=== PATIENT | female | born 1955 | race Caucasian/White ===

== ENCOUNTER → 2019-10-06 | Outpatient (CLI) | payer OTHER ==
[~2019-10-06] VITALS: Ht 160 cm; Wt 63.0 kg
[~2019-10-06] MED LIST: ADVIL PM CAPLE1 EACH PO; ALPRAZOLAM XR3 MG PO; CALCIUM 600 +1 EAC8 PO; FISH OIL 1,001000 M3; FOSAMAX 70 MG T70 MG PO; LISINOPRIL10 MG PO; OMEPRAZOLE 20 M20 M1 PO; SENIOR TABS1 EACH PO
[2019-10-06 12:45] VITALS: BP 163/88
--- NOTE | 2019-10-06 13:07 | NUR ---
Pain Clinic Assessment: 1. History of Osteoarthritis: NECK L-SPINE History of Rheumatoid Arthritis: 2. Height: 5 ft. 3 in. 160.0 cm. Weight: 138.8 lb. oz. 62.959 kg. Patient's BMI: 24.6 3. Vital Signs: BP: 163/88 Pulse: 83 Resp: 18 Temp: 02 Sat: 100 ECG Mon: 4. Pain Intensity: 7-10 5. Fall Risk: Dizziness: N Needs help standing or walking: N Fallen in the last 3 months: N Fall risk comments: 6. Patient on Blood Thinner: None 7. History of Hypertension: Y 8. Opioid Therapy greater than 6 weeks: N Opiate Contract Signed: 9. Risk Assessment Tool Provided: 0-LOW RISK 10. Functional Assessment Tool: 41/ 11. Recreational Drug Use: Never Drug Type: Tobacco Use: Former Smoker Tobacco Type: Cigarettes Amount or Packs/day: How Many Years: Alcohol Use: Yes Frequency: Special Occasions Quant:
--- NOTE | 2019-10-12 10:50 | HPC ---
[address] [address] PAIN MANAGEMENT CONSULTATION Name: VICKY GIRON Room #: REG CHARLOTTE Mendez.#: [id number] Admission: 10/06/19 Attend Phys: Jeremy Mast DO Discharge: Date of : 51 Report #: [id number] THIS REPORT FOR: cc: Betty Warren MD, Emily G. MD Johnson, James E. DO ~ REFERRING PHYSICIAN: Dr. Xavier Ramirez. CHIEF COMPLAINT: Right upper buttock pain. HISTORY OF PRESENT ILLNESS: As you know, the patient is a very pleasant 64-year-old female who has been referred to our service by her neurosurgeon, Dr. Xavier Ramirez to undergo right sacroiliac joint injection under fluoroscopic guidance. The patient has been reporting ongoing right upper buttock and posterolateral thigh pain that began on 03/04/1999. The patient states she has been suffering from this for an extended period of time. She has been treated previously with epidural injections at another pain clinic, but apparently lost efficacy. She was subsequently referred to Neurosurgery with Dr. Xavier Ramirez. Dr. Ramirez saw the patient last on 09/21/2019, advised to seek treatment with a right sacroiliac joint injection. She indicates to Dr. Whitlock that she was practicing her golf swing in 02/2019 where she exacerbated her symptoms. She describes the pain as constant, aching in the right upper buttock, just below the belt line, radiating into the posterolateral thigh. She denies lower extremity weakness, numbness or tingling. Due to the findings of physical exam and the recent Neurosurgery consultation, the patient was referred to our clinic to trial a right SI joint injection under fluoroscopic guidance. The patient indicates today pain is steady. She describes the pain as shooting. She places current pain score at 7-10/10, daily average at 7/10, worst pain has been 10/10. The patient states lying down, walking and standing as well as twisting exacerbates symptoms. What improves the pain is stretching and repositioning. She has been referred to our service to trial a sacroiliac joint injection on the right. PAST MEDICAL HISTORY: 1. Cirrhosis. 2. Hyperlipidemia. 3. Diverticulosis. 4. Gastroesophageal reflux disease. 5. Chronic thoracic pain. 6. Osteopenia. 7. Mitral regurgitation. PAST SURGICAL HISTORY: 1. Cholecystectomy. [facility] [address] [place] [address] PAIN MANAGEMENT CONSULTATION Name: VICKY GIRON Room #: REG [place]TE Tony#: [id number] Admission: 10/06/19 Attend Phys: Jeremy Mast DO Discharge: Date of : 51 Report #: [id number] 2. Left forearm surgery. 3. Nasal surgery. 4. Elbow surgery. 5. Cyst removal from the tongue. 6. Right Achilles tendon repair x 3, sinus surgery in 2011, tubal ligation. SOCIAL HISTORY: The patient denies tobacco, IV or illicit drug use. Admits to approximately 2 alcohol beverages per week. 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 She is not receiving workmen's compensation nor is she trying to obtain disability benefits. She is unaccompanied at today's visit. She is not in litigation in regards to her pain. REVIEW OF SYSTEMS: Positive for recent weight gain, wearing corrective eyewear, hearing loss with tinnitus, chronic sinus problems with rhinitis, frequent urination, nocturia, rash and itching, nervousness, anxiety, right upper buttock and posterolateral thigh pain that is chronic in nature. All other review of systems negative per 12-point review of systems other than those listed in history of present illness. Pain impact score 41/70 indicating moderate interference of daily activities secondary to pain. ALLERGIES: CODEINE. CURRENT MEDICATIONS: Advil PM 1 tab p.o. at bedtime, alprazolam 0.5 mg p.r.n., alendronate 70 mg once a week, calcium carbonate 1 tab per day, omega-3 fish oil 1 tab per day, lisinopril 10 mg per day, multivitamin 1 tab per day and omeprazole 20 mg once a day. IMAGING: MRI of lumbar spine obtained on 09/28/2019 shows L1-L2 unremarkable, L2-L3 shows mild intervertebral disk changes, mild facet arthrosis. No central canal neural foraminal stenosis. L3-L4, marked intervertebral disk space changes, moderate facet arthrosis. No central canal neural foraminal stenosis. L4-L5, mild intervertebral disk space, marked facet arthrosis. No central canal neural foraminal stenosis. L5-S1, mild intervertebral disk space changes, marked facet arthropathy, no central canal neural foraminal stenosis. PQRS: The patient has known arthritic changes of the lumbar spine and cervical spine. No rheumatoid arthritis. She is placing pain score at 7/10. She is not a fall risk, has not had a fall in last 3 months. She is not on blood thinners, but is treated for hypertension. She is not on chronic opioids and has reportedly low addiction potential based on our assessment tool. Pain impact score 41/70 indicating moderate interference of daily activities secondary to pain. PHYSICAL EXAMINATION: [facility] [address] [place] [address] PAIN MANAGEMENT CONSULTATION Name: VICKY GIRON Room #: REG [place]TE Tony#: [id number] Admission: 10/06/19 Attend Phys: Jeremy Mast DO Discharge: Date of : 51 Report #: [id number] VITAL SIGNS: Blood pressure 163/88, pulse 83, respiratory rate 18 and unlabored. The patient is 100% on room air. Height 5 feet 3 inches tall, weight 138.8 pounds, BMI calculated 24.6. GENERAL: Well-developed, well-nourished, well-hydrated 64-year-old female, appearing her stated age, pain is rated today 7-10/10. HEENT: Normocephalic, atraumatic. Pupils equal, round, reactive to light. Extraocular muscles are intact. NEUROLOGIC: Speech fluent. The patient deemed a good historian. LUNGS: Clear. No wheeze, rhonchi or rales. CARDIOVASCULAR: Regular. No appreciable gallop, no rub. ABDOMEN: Soft, nontender, nondistended, normoactive bowel sounds. EXTREMITIES: Show no clubbing, no cyanosis, no edema. MUSCULOSKELETAL: Lower extremity strength equal and symmetrical 5/5, intact to light touch from L1 through S2 dermatomes. Seated straight leg raising is negative. Supine straight leg is raising negative. Sunshine's test is only positive for right SI joint pain. No intrinsic hip pathology. There is normal range of motion of the hips bilaterally. Gait is mildly antalgic favoring right lower extremity over left. There is a leg length discrepancy noted when comparing left lower extremity to right with right significantly shorter. Reflexes are 2+/4 bilaterally. The patient is able to toe walk and heel walk without complications. Ankle clonus negative. Babinski is negative. ASSESSMENT: 1. Right sacroiliac joint pain. 2. Lumbosacral spondylosis without radiculopathy. 3. Facet arthropathy of the lumbar spine. 4. Lumbar degeneration. 5. Chronic intractable pain. PLAN: 1. Based on today's physical exam and history the patient has provided, the description the patient uses in regards to pain as well as location of symptoms, likely source of the patient's symptoms appears to be the right sacroiliac joint. I do feel that there is a combination of the right sacroiliac joint with facet arthropathy of the lumbar spine, though the most problematic source of symptoms appears to be the right SI joint. This concurs with the findings that Dr. Xavier Ramirez had on 09/21/2019 during their last consultation. The patient was subsequently then referred to our service to trial a sacroiliac joint injection. We also discussed with the patient the other treatment options available for sacroiliac joint pain. The following was discussed with the patient today. We discussed physical therapy, stretching exercises as well as pelvic leveling techniques done either through chiropractic or osteopathic physicians. We discussed medication management utilizing a consistent nonsteroidal anti-inflammatory for pain control, whether this would be topical or oral, we determine the efficacy with the patient. We discussed the intraarticular SI joint injection requested by Dr. Ramirez [place] [address] PAIN MANAGEMENT CONSULTATION Name: JULIANNA GIRONSAMMKARISSA Room #: JAMES Tony#: [id number] Admission: 10/06/19 Attend Phys: Jeremy Mast DO Discharge: Date of : 51 Report #: [id number] discussed surgical fusion of the sacroiliac joint. After reviewing the risks and benefits of all the proposed treatment options, the patient chose to undergo right sacroiliac joint injection under fluoroscopic guidance. 2. The patient was advised the risks and the benefits of a right sacroiliac joint injection. These risks include but are not necessarily limited to bleeding, bruising, infection, worsening pain, no relief of pain, also risk of temporary or permanent muscle weakness, temporary or permanent nerve damage, possible joint destruction and . The patient states understood and wished to proceed. 2. No medication changes made at today's visit. The patient will continue current medical therapy as previously prescribed. 4. We will see the patient back in followup visit in approximately 30 days. At that time, review the efficacy of today's right sacroiliac joint injection and determine if next in the series might be necessary. 3. We wish to thank Dr. Xavier Ramirez for the opportunity to see this patient in consultation. We will keep you apprised of her response to treatment as we address what appears to be right sacroiliac joint pain. Again, we wish to thank you for the opportunity to see this patient in consultation. PROCEDURE NOTE DESCRIPTION OF PROCEDURE: Right sacroiliac joint injection under fluoroscopic guidance. This is the first procedure of the first series that the patient is undergoing. After obtaining written consent, the patient was taken back to the fluoroscopy suite and placed in a prone position with a pillow under the pelvis to decrease the lumbar lordosis. The skin of the gluteal-sacral area overlying the right sacroiliac joint was prepped and draped in an aseptic fashion. A medial to lateral oblique projection allowed separation of the anterior and posterior branches of the joint space. The skin and subcutaneous tissue overlying the target site of injection was anesthetized using 3 mL of 1% lidocaine. A 22-gauge 3-1/2 inch needle with a bent tip was directed into the inferior aspect of the sacroiliac joint using a posterior approach. A "giving way" at the needle hub was noted once the dorsal sacroiliac and interosseous ligaments were engaged. After negative aspiration for heme, a total of 0.5 mL of Omnipaque was injected, outlining the coin-shaped inferior recess of the joint. Provocation responses consisting of intense buttock pain were negative. After negative aspiration for heme, 3 mL of a solution containing 1 mL, 40 mg per mL, 40 mg total triamcinolone and 2 mL of bupivacaine 0.5% was slowly injected. The needle was then retracted approximately mcc and the needle track was flushed with 1 mL of 1% lidocaine. Needle was then removed. A sterile bandage was placed over the injection site. There were no new sensory deficits present in the lower extremities. [facility] [address] [place] [address] PAIN MANAGEMENT CONSULTATION Name: [facility] Room #: REG [facility].#: [id number] Admission: 10/06/19 Attend Phys: Jeremy Mast DO Discharge: Date of : 51 Report #: [id number] The heart rate, pulse oximetry and blood pressure were continuously monitored after the procedure. There were no apparent complications. The patient tolerated the procedure well and was carefully escorted to the recovery room in stable condition. The VAS was 7/10 before the procedure and 1/10 ten minutes after the procedure. After meeting discharge criteria, the patient was discharged home. <ELECTRONICALLY SIGNED> By: Jeremy Mast DO 10/12/19 1050 [id number] 1559 Jeremy Mast DO /ela
== END | disposition home or self-care (01) ==
LOC: PAIN 06:43
DX: M53.3 Sacrococcygeal disorders, not elsewhere classified (principal); M47.27 Other spondylosis with radiculopathy, lumbosacral region; M47.26 Other spondylosis with radiculopathy, lumbar region; M51.16 Intervertebral disc disorders with radiculopathy, lumbar region; G89.29 Other chronic pain; E78.5 Hyperlipidemia, unspecified; K21.9 Gastro-esophageal reflux disease without esophagitis; M81.0 Age-related osteoporosis without current pathological fracture; Z98.890 Other specified postprocedural states; Z79.899 Other long term (current) drug therapy; Z87.19 Personal history of other diseases of the digestive system; Z88.8 Allergy status to other drugs, medicaments and biological substances

== ENCOUNTER → 2019-11-30 | Outpatient (CLI) | payer OTHER ==
[~2019-11-30] VITALS: Ht 160 cm; Wt 61.3 kg
[~2019-11-30] MED LIST changes: +NABUMETONE 500500 M1 PO
[2019-11-30 09:33] VITALS: BP 122/69
--- NOTE | 2019-11-30 09:56 | NUR ---
Pain Clinic Assessment: 1. History of Osteoarthritis: NECK L-SPINE History of Rheumatoid Arthritis: 2. Height: 5 ft. 3 in. 160.0 cm. Weight: 135.2 lb. oz. 61.326 kg. Patient's BMI: 24.0 3. Vital Signs: BP: 122/69 Pulse: 94 Resp: 14 Temp: 02 Sat: 100 ECG Mon: 4. Pain Intensity: 2 5. Fall Risk: Dizziness: N Needs help standing or walking: N Fallen in the last 3 months: N Fall risk comments: 6. Patient on Blood Thinner: None 7. History of Hypertension: Y 8. Opioid Therapy greater than 6 weeks: N Opiate Contract Signed: 9. Risk Assessment Tool Provided: 0-LOW RISK 10. Functional Assessment Tool: 11. Recreational Drug Use: Never Drug Type: Tobacco Use: Former Smoker Tobacco Type: Cigarettes Amount or Packs/day: 3/4 How Many Years: 15 Alcohol Use: Yes Frequency: Weekly Quant: BEER
--- NOTE | 2019-12-01 12:58 | HPC ---
[facility] [place] [address] PAIN MANAGEMENT CONSULTATION Name: VICKY GIRON Room #: REG CHARLOTTE Cecily#: [id number] Admission: 11/30/19 Attend Phys: Jeremy Mast DO Discharge: Date of : 51 Report #: [id number] THIS REPORT FOR: cc: Betty Warren MD, Emily G. MD Johnson, James E. DO ~ DATE OF SERVICE: 11/30/2019 REFERRING PHYSICIAN: Dr. Xavier Ramirez. CHIEF COMPLAINT: Right upper buttock pain. HISTORY OF PRESENT ILLNESS: As you know, the patient is a very pleasant 64-year-old female who has returned today in followup visit per the request of her neurosurgeon, Dr. Xavier Ramirez for possible right sacroiliac joint injection. The patient has undergone lumbar epidural injections x 3, the most recent in June, was then subsequently referred to our clinic where she underwent a right SI joint injection per the request of Dr. Ramirez in September and then the patient was sent to undergo greater trochanteric bursa injection at Orthopedics in October. She returns today in followup visit, now reporting pain score about 2/10. She is able to localize pain directly over the right sacroiliac joint. She indicates pain is exacerbated with lying down and walking, improves with stretching and repositioning. The patient states her pain is well controlled at present, returning today to discuss the possibility of undergoing next in the series of injections. The patient does report that she has recently been treated for diverticulitis and continues to experience symptoms from her diverticular issues. She states she is experiencing ongoing pain and difficulty with bowel movements. She believes she may have continued symptoms of her diverticular issues. ALLERGIES: CODEINE. CURRENT MEDICATIONS: Advil, alprazolam, alendronate, calcium carbonate, omega-3 fish oil, lisinopril, multivitamin, omeprazole. SOCIAL HISTORY: The patient denies tobacco, IV or illicit drug use. Admits to approximately 2 alcohol beverages per week. 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 IMAGING: No new imaging available. PQRS: The patient has known arthritic changes of the lumbar spine and cervical spine. No rheumatoid arthritis. She is placing pain intensity day 08/30. She is not at fall risk, has not had a fall in last 3 months. She is not on blood thinners, but is treated for hypertension. She is not on chronic opioids, but [facility] [address] [place] [address] PAIN MANAGEMENT CONSULTATION Name: VICKY GIRON Room #: REG CLI [facility].#: [id number] Admission: 11/30/19 Attend Phys: Jeremy Mast DO Discharge: Date of : 51 Report #: [id number] does have a low opiate addiction potential. Pain impact is 41/70, moderate interference of daily activities secondary to pain. PHYSICAL EXAMINATION: VITAL SIGNS: Blood pressure 122/69, pulse 94, respiratory rate 14 and unlabored. The patient is 100% on room air. Height 5 feet 3 inches tall, weight 135.2 pounds, BMI calculated 24. GENERAL: Well-developed, well-nourished, well-hydrated 64-year-old female, appearing stated age, pain is rated today 2/10. HEENT: Normocephalic, atraumatic. Pupils equal, round, reactive to light. Speech fluent. EXTREMITIES: Show no clubbing, no cyanosis, and no edema. MUSCULOSKELETAL: Seated straight leg raising is negative. Supine straight leg raising is negative. Sunshine's test is positive for right SI joint pain directly over the area of her typical symptoms. Gait mildly antalgic. ASSESSMENT: 1. Right sacroiliac joint pain. 2. Lumbosacral spondylosis without radiculopathy. 3. Lumbar facet arthropathy. 4. Lumbar degeneration. 5. Greater trochanteric bursitis. 6. Chronic intractable pain. PLAN: 1. The patient returns today in followup visit, now reporting pain score 2/10, which is completely tolerable for her. She was established today's appointment at our last visit to discuss the possibility of undergoing a right sacroiliac joint injection. At this point, we would recommend delaying the injection as her pain is well controlled and she is currently experiencing continued diverticular issues, which would be likely exacerbated with steroid exposure. We would recommend limiting the steroid exposure at this time. In conjunction with the current diverticular issues, there is a possibility of more risk with COVID-19 virus in elective procedures and steroid exposures. The patient and I did discuss this today and are in agreement to delay the injection until which time it is causing more dysfunction or she has complete resolution of her diverticular issues and the COVID restrictions have been reduced. The patient is agreeable with this plan. 2. No medication changes made at today's visit. The patient will continue current medical therapy as previously prescribed. 3. We will see the patient back in followup visit on an as-needed basis for possible next in the series of right sacroiliac joint injections. The patient is reaching top levels of steroid exposure over the 6 months and recommend utilization of the medication only when necessary. It is not to provide a complete resolution of pain. We will see the patient back in followup visit if her symptoms do not improve for a right SI joint injection. We are hopeful the [facility] [place] [address] PAIN MANAGEMENT CONSULTATION Name: VICKY GIRON Room #: JAMES Tony#: [id number] Admission: 11/30/19 Attend Phys: Jeremy Mast DO Discharge: Date of : 51 Report #: [id number] patient will continue to see improvement given her 08/30 pain today from 01/27 when we last saw her. <ELECTRONICALLY SIGNED> By: Jeremy Mast DO 12/01/19 1258 1059 1220 Jeremy Mast DO /nt
== END ==
LOC: PAIN 06:50
DX: M47.817 Spondylosis without myelopathy or radiculopathy, lumbosacral region (principal); M51.36 Other intervertebral disc degeneration, lumbar region; G89.29 Other chronic pain; M71.9 Bursopathy, unspecified; M12.9 Arthropathy, unspecified; M53.3 Sacrococcygeal disorders, not elsewhere classified; Z79.899 Other long term (current) drug therapy

== ENCOUNTER → 2020-01-04 | Outpatient (CLI) | payer OTHER ==
[~2020-01-04] VITALS: Ht 160 cm; Wt 61.5 kg
[~2020-01-04] MED LIST changes: +MIRALAX119 GM PO
[2020-01-04 09:06] VITALS: BP 125/65
--- NOTE | 2020-01-04 09:15 | NUR ---
Pain Clinic Assessment: 1. History of Osteoarthritis: NECK L-SPINE History of Rheumatoid Arthritis: 2. Height: 5 ft. 3 in. 160.0 cm. Weight: 135.6 lb. oz. 61.508 kg. Patient's BMI: 24.0 3. Vital Signs: BP: 125/65 Pulse: 74 Resp: 16 Temp: 02 Sat: 100 ECG Mon: 4. Pain Intensity: 2; 8 WITH ACTIVITY 5. Fall Risk: Dizziness: N Needs help standing or walking: N Fallen in the last 3 months: N Fall risk comments: 6. Patient on Blood Thinner: None 7. History of Hypertension: Y 8. Opioid Therapy greater than 6 weeks: N Opiate Contract Signed: 9. Risk Assessment Tool Provided: 0-LOW RISK 10. Functional Assessment Tool: 11. Recreational Drug Use: Never Drug Type: Tobacco Use: Former Smoker Tobacco Type: Amount or Packs/day: How Many Years: Alcohol Use: Yes Frequency: Quant:
--- NOTE | 2020-01-11 09:19 | HPC ---
[facility] [place] [address] PAIN MANAGEMENT CONSULTATION Name: VICKY GIRON Room #: REG CHARLOTTE Cecily#: [id number] Admission: 01/04/20 Attend Phys: Jeremy Mast DO Discharge: Date of : 51 Report #: [id number] THIS REPORT FOR: cc: Betty Warren MD, Emily G. MD Johnson, James E. DO ~ DATE OF SERVICE: 01/04/2020 REFERRING PHYSICIAN: Dr. Xavier Ramirez PRIMARY CARE PHYSICIAN: Dr. Betty Warren CHIEF COMPLAINT: Right upper buttock pain. HISTORY OF PRESENT ILLNESS: As you know, the patient is a very pleasant 64-year-old female who has returned today in followup visit per the request of her neurosurgeon Dr. Xavier Ramirez to undergo a right SI joint injection under fluoroscopic guidance. We saw the patient last month where she was on antibiotics for an acute bacterial infection. It was determined that an elective procedure utilizing steroid should be delayed until which time she completed the antibiotic therapy and symptoms had improved. This in conjunction with restrictions in regards to COVID-19 and intra-articular joint injections. We have since relaxed our regulations around COVID-19 and the patient has completed her antibiotic therapy and has returned for a right SI joint injection under fluoroscopic guidance to address pain for which she gives a pain score of 8/10 with activity, 2/10 with non-activity. ALLERGIES: CODEINE. CURRENT MEDICATIONS: Advil, alprazolam, alendronate, calcium carbonate, omega-3 fish oil, lisinopril, omega-3 vitamins and omeprazole. SOCIAL HISTORY: The patient denies tobacco, IV or illicit drug use. Admits to approximately 2 alcohol beverages per week. 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 IMAGING: No new imaging available. PQRS: The patient has arthritic changes of the lumbar spine, cervical spine. No rheumatoid arthritis. She is placing pain today at 2/10 with no activity, 8/10 with activity, fall risk is negative. She has not fallen in last 3 months. She is not on blood thinners, but is treated for hypertension. She is not on chronic opioids and has a low opioid addiction potential. Pain impact score 41 of 70 indicating moderate to severe interference of daily activities secondary to pain. [address] [address] PAIN MANAGEMENT CONSULTATION [facility] Room #: JAMES CHARLOTTE Tony#: [id number] Admission: 01/04/20 Attend Phys: Jeremy Mast DO Discharge: Date of : 51 Report #: [id number] PHYSICAL EXAMINATION: VITAL SIGNS: Blood pressure 125/65, pulse 74, respiratory rate 16 and unlabored. The patient is 100% on room air. Height 5 feet 3 inches tall, weight 135.6 pounds, BMI calculated 24.0. GENERAL: Well-developed, well-nourished, well-hydrated 64-year-old female, appearing stated age, pain is rated today up to 8/10 with activity. HEENT: Normocephalic, atraumatic. Pupils equal, round and reactive. EXTREMITIES: Show no clubbing, no cyanosis, no edema. MUSCULOSKELETAL: Lower extremity strength remains symmetrical 5/5. Slight giveaway strength noted with hip flexion on the right due to pain generation over the SI joint. Seated straight leg raising negative. Supine straight leg raising negative. Sunshine's test is positive for SI joint dysfunction, pain with radiation in classic distribution for SI joint. Gait remains mildly antalgic favoring right lower extremity. There is noted leg length discrepancy when comparing left lower extremity to right. ASSESSMENT: 1. Right sacroiliac joint pain. 2. Lumbosacral spondylosis without radiculopathy. 3. Facet arthropathy of the lumbar spine. 4. Lumbar degeneration. 5. Chronic intractable pain. PLAN: 1. The patient returns today in followup visit per the request of her neurosurgeon, Dr. Xavier Ramirez to undergo next in the series of right sacroiliac joint injections under fluoroscopic guidance. The patient has completed her antibiotic therapy and restrictions for COVID have been reduced and thus we can perform the requested right sacroiliac joint injection today. The patient has been advised risks and benefits of this procedure. These risks include but are not necessarily limited to bleeding, bruising, infection, worsening pain, no relief of pain, also risk of temporary or permanent muscle weakness, temporary or permanent nerve damage, possible paralysis and . The patient states understood and wished to proceed. 2. No medication changes made at today's visit. The patient will continue current medical therapy as previously prescribed. 3. We will see the patient back in followup visit on an as needed basis for possible next in the series of right sacroiliac joint injections under fluoroscopic guidance. PROCEDURE NOTE DESCRIPTION OF PROCEDURE: Right sacroiliac joint injection under fluoroscopic guidance. [address] [address] PAIN MANAGEMENT CONSULTATION Name: VICKY GIRON Room #: REG CHARLOTTE Tony#: [id number] Admission: 01/04/20 Attend Phys: Jeremy Mast DO Discharge: Date of : 51 Report #: [id number] This is the second procedure of the first series that the patient is undergoing. After obtaining written consent, the patient was taken back to the fluoroscopy suite and placed in a prone position with a pillow under the pelvis to decrease the lumbar lordosis. The skin of the gluteal-sacral area overlying the right sacroiliac joint was prepped and draped in an aseptic fashion. A medial to lateral oblique projection allowed separation of the anterior and posterior branches of the joint space. The skin and subcutaneous tissue overlying the target site of injection was anesthetized using 3 mL of 1% lidocaine. A 22-gauge 3.5-inch needle with a bent tip was directed into the inferior aspect of the sacroiliac joint using a posterior approach. A "giving way" at the needle hub was noted once the dorsal sacroiliac and interosseous ligaments were engaged. After negative aspiration for heme, a total of 0.4 mL of Omnipaque was injected, outlining the coin-shaped inferior recess of the joint. Provocation responses consisting of intense buttock pain were negative. After negative aspiration for heme, 3 mL of a solution containing 1 mL 40 mg/mL 40 mg total triamcinolone and 2 mL of bupivacaine 0.5% was slowly injected. The needle was then retracted approximately penitentiary and the needle track was flushed with 1 mL of lidocaine 1%. Needle was then removed. A sterile bandage was placed over the injection site. There were no new sensory deficits present in the lower extremities. The heart rate, pulse oximetry and blood pressure were continuously monitored after the procedure. There were no apparent complications. The patient tolerated the procedure well and was carefully escorted to the recovery room in stable condition. The VAS was up to 8/10 before the procedure and 0/10 ten minutes after the procedure. After meeting discharge criteria, the patient was discharged home. <ELECTRONICALLY SIGNED> By: Jeremy Mast DO 01/11/20 0919 [id number] Jeremy Mast DO /nt
== END | disposition home or self-care (01) ==
LOC: PAIN 06:55
PROVIDERS: ATTEND Anesthesiology Pain Medicine
DX: M53.3 Sacrococcygeal disorders, not elsewhere classified (principal); M47.817 Spondylosis without myelopathy or radiculopathy, lumbosacral region; M47.816 Spondylosis without myelopathy or radiculopathy, lumbar region; M51.36 Other intervertebral disc degeneration, lumbar region; G89.29 Other chronic pain; I10 Essential (primary) hypertension; Z98.890 Other specified postprocedural states; Z79.899 Other long term (current) drug therapy; Z88.8 Allergy status to other drugs, medicaments and biological substances; Z87.891 Personal history of nicotine dependence

== ENCOUNTER → 2020-03-15 | Outpatient (CLI) | payer OTHER ==
[~2020-03-15] VITALS: Ht 160 cm; Wt 61.6 kg
[~2020-03-15] MED LIST changes: +CHILDREN'S ASPI81 M1 PO; +DOXYCYCLINE HYC50 MG PO
[2020-03-15 15:00] VITALS: BP 132/59
--- NOTE | 2020-03-15 15:15 | NUR ---
Pain Clinic Assessment: 1. History of Osteoarthritis: NECK L-SPINE History of Rheumatoid Arthritis: 2. Height: 5 ft. 3 in. 160.0 cm. Weight: 135.8 lb. oz. 61.598 kg. Patient's BMI: 24.1 3. Vital Signs: BP: 132/59 Pulse: 77 Resp: 14 Temp: 02 Sat: 100 ECG Mon: 4. Pain Intensity: 4 5. Fall Risk: Dizziness: N Needs help standing or walking: N Fallen in the last 3 months: Y Fall risk comments: 6. Patient on Blood Thinner: None 7. History of Hypertension: Y 8. Opioid Therapy greater than 6 weeks: N Opiate Contract Signed: 9. Risk Assessment Tool Provided: 0-LOW RISK 10. Functional Assessment Tool: 11. Recreational Drug Use: Never Drug Type: Tobacco Use: Former Smoker Tobacco Type: Amount or Packs/day: How Many Years: Alcohol Use: Yes Frequency: Quant:
--- NOTE | 2020-03-28 12:51 | HPC ---
[facility] [place] [address] PAIN MANAGEMENT CONSULTATION Name: VICKY GIRON Room #: REG CHARLOTTE Cecily#: [id number] Admission: 03/15/20 Attend Phys: Jeremy Mast DO Discharge: Date of : 51 Report #: [id number] THIS REPORT FOR: cc: Betty Warren MD, Emily G. MD Johnson, James E. DO ~ DATE OF SERVICE: 03/15/2020 CHIEF COMPLAINT: Right low back pain. HISTORY OF PRESENT ILLNESS: As you know, the patient is a 64-year-old female who was referred to our service by her neurosurgeon, Dr. Xavier Ramirez for treatment for her sacroiliac joint pain. The patient underwent SI joint injections in early 2019. The patient reports that the injections did provide some benefit, but she continues to experience recurrence of symptoms. She returns today with axial distribution changes of her pain. It now is located over the facet joints of the lower lumbar spine consistent with facet arthropathy. She has undergone recent imaging which does confirm severe facet arthropathy at L4-L5 and L5-S1 level. She returns to discuss treatment options. Today, the patient is reporting pain score at a level of 4/10. ALLERGIES: CODEINE. CURRENT MEDICATIONS: Doxycycline 500 mg twice a day, MiraLax 17 grams per day, nabumetone 500 mg 3 times a day, omeprazole 20 mg per day, multivitamin 1 tab per day, lisinopril 10 mg per day, omega-3 fish oil 1 tab per day, calcium carbonate 1 tab per day, alendronate 70 mg once a day, alprazolam 0.5 mg p.r.n., Advil PM 1 tab p.o. at bedtime. SOCIAL HISTORY: The patient denies tobacco, IV or illicit drug use. Admits to approximately 2 alcohol beverages per week. 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 She is unaccompanied at today's visit. IMAGING: No new imaging available. PQRS: The patient has known arthritic changes of the lumbar spine, cervical spine. No reported rheumatoid arthritis. She is placing her current pain score at 4/10. She is not a fall risk, but has had a fall in last 3 months, apparently tripping over objects at home. This has been rectified. She is not on blood thinners, but is treated for hypertension. She is not on chronic opioids and based on our assessment tool has a low opioid assessment risk. Pain impact is 41/70, moderate to severe interference of daily activities secondary to pain. PHYSICAL EXAMINATION: [facility] [address] [place] [address] PAIN MANAGEMENT CONSULTATION [facility] #: REG [facility].#: [id number] Admission: 03/15/20 Attend Phys: Jeremy Mast DO Discharge: Date of : 51 Report #: [id number] VITAL SIGNS: Blood pressure 132/59, pulse is 77, respiratory rate 14 and unlabored. The patient is 100% on room air. Height 5 feet 3 inches tall, weight 135.8 pounds, BMI calculated 24.1. GENERAL: Well-developed, well-nourished, well-hydrated 64-year-old female, appearing stated age, pain is rated today 4/10. HEENT: Normocephalic, atraumatic. Pupils equal, round and reactive. Speech is fluent. EXTREMITIES: Show no clubbing, no cyanosis. No reported edema. MUSCULOSKELETAL: The patient does have palpatory tenderness over the paraspinal musculature of lower lumbar spine. No spinous process tenderness. Deep palpation over the facet joints at L4-L5 and L5-S1 could cause intensification of pain. There remains positive SI joint pain with deep palpation over the sacroiliac joint as well. Lumbar provocation testing is met with increasing axial back pain. Sunshine's test is negative. ASSESSMENT: 1. Lumbosacral spondylosis without radiculopathy. 2. Facet arthropathy of lumbar spine. 3. Lumbar degeneration. 4. Right sacroiliac joint pain. 5. Chronic intractable pain. PLAN: 1. The patient returns today in followup visit reporting mainly facet arthropathy pain. She is able to localize pain directly over the L4-L5 and L5-S1 facet joints on the right side specifically. There is no pain on the left. The patient and I discussed at length the treatment options we have available. She is interested in intraarticular injections or medial branch nerve blocks after our discussion today. We have agreed to have the patient undergo the procedure and have established an appointment next week, 03/21/2020 to undergo medial branch blocks. The patient is agreeable to undergo the plan. We will see her back on 03/21/2020. The patient in the interim has indicated she recently underwent an MRI of the lumbar spine at [facility]. We have not had this available to us. We will obtain this before the patient returns. 2. No medication changes made at today's visit. The patient will continue current medical therapy as prior prescribed. 3. We will see the patient back in followup visit in 1 week to undergo medial branch blocks at L3, L4, L5 on the right side to address facet arthropathy pain. If this is unsuccessful, move forward with radiofrequency lesioning. The patient is agreeable with the plan after we spent 20 minutes of time discussing the different treatment options for her pain today. <ELECTRONICALLY SIGNED> By: Jeremy Mast DO 03/28/20 1251 [id number] Jeremy Mast DO /nt
== END ==
LOC: PAIN 03-08 06:55
PROVIDERS: ATTEND Anesthesiology Pain Medicine
DX: M47.817 Spondylosis without myelopathy or radiculopathy, lumbosacral region (principal); M53.3 Sacrococcygeal disorders, not elsewhere classified; G89.29 Other chronic pain; Z88.5 Allergy status to narcotic agent; Z79.899 Other long term (current) drug therapy

== ENCOUNTER → 2020-03-21 | Outpatient (CLI) | payer OTHER ==
[~2020-03-21] VITALS: Ht 160 cm; Wt 61.2 kg
[~2020-03-21] MED LIST changes: -CHILDREN'S ASPI81 M1 PO
--- NOTE | ~2020-03-21 | HPC ---
[facility] [address] [place] [employer] [address] PAIN MANAGEMENT CONSULTATION Name: VICKY GIRON Room #: REG CHARLOTTE Simms.#: [id number] Admission: 03/21/20 Attend Phys: Jeremy Mast DO Discharge: Date of : 51 Report #: [id number] THIS REPORT FOR: cc: Betty Warren MD, Emily G. MD Johnson, James E. DO ~ CC: Betty Ramirez MD DATE OF SERVICE: 03/21/2020 CHIEF COMPLAINT: Right low back pain, upper buttock pain. HISTORY OF PRESENT ILLNESS: As you know, the patient is a very pleasant 64-year-old female who returns today in followup visit to undergo right L3, L4, L5 medial branch nerve block under fluoroscopic guidance to determine if the symptoms she is experiencing from the facet joints on the right side will be amenable to moving forward with radiofrequency lesioning. This is the first in the stage procedures. The patient places pain today at a level of 6/10. She indicates no injury or trauma since our visit of last week where we discussed this treatment option. She returns for the injections today. ALLERGIES: CODEINE. CURRENT MEDICATIONS: See chart. SOCIAL HISTORY: The patient denies tobacco, IV or illicit drug use. Admits to 2 alcohol beverages per week. She is a retired teacher, unaccompanied today. IMAGING: No new imaging available. PQRS: The patient has arthritic changes of the lumbar spine, cervical spine, but no rheumatoid arthritis. She is placing pain intensity 6/10. She is not a fall risk, but has had a fall in last 3 months. She is not on blood thinners, but is treated for hypertension. She is not on chronic opioids, has a low opiate addiction potential. Pain impact today is reported at 41/70, severe interference of daily activities secondary to pain. PHYSICAL EXAMINATION: VITAL SIGNS: Blood pressure 127/60, pulse 100, respiratory rate 14 and unlabored. The patient is 98% on room air. Height 5 feet 3 inches tall, weight 135 pounds, BMI calculated 23.4. GENERAL: Well-developed, well-nourished, well-hydrated 64-year-old female, appearing stated age, pain is rated today at 6/10. HEENT: Normocephalic, atraumatic. Pupils equal, round and reactive. Speech [facility] [address] [place] [address] PAIN MANAGEMENT CONSULTATION Name: VICKY GIRON Room #: REG CHARLOTTE Cecily#: [id number] Admission: 03/21/20 Attend Phys: Jeremy Mast DO Discharge: Date of : 51 Report #: [id number] fluent. EXTREMITIES: Show no clubbing, no cyanosis, and no appreciable edema. MUSCULOSKELETAL: Lower extremity strength equal and symmetrical. She has a palpatory tenderness over the right SI joint as well as the facet joints at L4-L5 and L5-S1. Lumbar provocation testing met with right axial back pain, no radiation of symptoms. Straight leg raising remains negative. ASSESSMENT: 1. Lumbosacral spondylosis without radiculopathy. 2. Facet arthropathy of the lumbar spine. 3. Lumbar degeneration. 4. Right sacroiliac joint pain. 5. Chronic intractable pain. PLAN: 1. The patient returns today in followup visit with pain directly over the L4-L5 and L5-S1 facet joints on the right. We have established today's appointment to undergo medial branch blocks of the L3, L4, L5 medial branch nerves on the right side. If this is unsuccessful at alleviating the patient's pain for a prescribed period of time, we would then move forward with the second in the series of medial branch blocks. If this again is successful at alleviating symptoms for a period of time, then moving forward with radiofrequency lesioning would be appropriate. The patient returns for the first in the series of medial branch blocks today. She has been advised risks and benefits of procedure, states understood and wished to proceed. 2. We will establish an appointment for the patient next week. She will contact our clinic over the next couple of days to advise us of the efficacy of the medial branch blocks provided today. We are hopeful the patient will see good benefit with the injections. We will see her back in followup next week for medial branch block #2 in the series. DESCRIPTION OF PROCEDURE: Right L3, L4, L5 lumbar medial branch blocks under fluoroscopic guidance. This is the first of 2 diagnostic medial branch blocks on the right side that the patient is undergoing. After obtaining written consent, the patient was taken back to the fluoroscopy suite and placed in a prone position on the fluoroscopy table with a pillow under the abdomen to decrease the lumbar lordosis. The skin overlying the lumbosacral area was prepped and draped in an aseptic fashion. The L4 transverse process corresponding to the L3 medial branch nerve and the L5 transverse process corresponding to the L4 medial branch nerve on the right side were visualized under AP fluoroscopy. The skin and subcutaneous tissue overlying the target sites of injection were anesthetized using 2 mL of 1% lidocaine. A 20-gauge 3.5 inch spinal needle with a bent tip was advanced under [address] [address] PAIN MANAGEMENT CONSULTATION Name: VICKY GIRON Room #: REG CHARLOTTE Simms#: [id number] Admission: 03/21/20 Attend Phys: Jeremy Mast DO Discharge: Date of : 51 Report #: [id number] fluoroscopic guidance using a superior to inferior and lateral to medial approach to the dorsal, superior and medial aspect of the base of the transverse process. The needles were then directed ventral, medial and caudad to reach the target locations. An oblique view facilitated needle placement with properly positioned needles in the middle of the "eye" of the Seb dog for the medial branch block. At each site the needles rested on periosteum. After negative aspiration for heme or CSF, 0.1 mL of Omnipaque dye was injected at each site under live fluoroscopy, demonstrating absence of vascular uptake. After negative aspiration for heme or CSF, 0.5 mL of bupivacaine 0.5% was slowly injected at each site to avoid forcing the solution away from the target points. The needles were then removed. The L5 dorsal ramus block on the right side was performed using a slightly oblique approach under fluoroscopic guidance, placing the needle within the groove between the sacral site and the superior articular process of S1. The needle rested on periosteum. After negative aspiration for heme or CSF, 0.1 mL of Omnipaque dye was injected at under live fluoroscopy, demonstrating absence of vascular uptake. After negative aspiration for heme or CSF, 0.5 mL of bupivacaine 0.5% was slowly injected to avoid forcing the solution away from the target point. The needle was then removed. Sterile bandages were placed over the injection site. There were no apparent complications. The patient tolerated the procedure well and was carefully escorted to the recovery room in stable condition. The VAS was 6/10 before the procedure and 4/10, 10 minutes after the procedure. After meeting discharge criteria, the patient was discharged home. By: [id number] Jeremy Mast DO /nt
[2020-03-21 14:55] VITALS: BP 127/60
--- NOTE | 2020-03-21 15:01 | NUR ---
Pain Clinic Assessment: 1. History of Osteoarthritis: NECK L-SPINE History of Rheumatoid Arthritis: 2. Height: 5 ft. 3 in. 160.0 cm. Weight: 135.0 lb. oz. 61.236 kg. Patient's BMI: 23.9 3. Vital Signs: BP: 127/60 Pulse: 100 Resp: 14 Temp: 02 Sat: 98 ECG Mon: 4. Pain Intensity: 6 5. Fall Risk: Dizziness: N Needs help standing or walking: N Fallen in the last 3 months: N Fall risk comments: 6. Patient on Blood Thinner: None 7. History of Hypertension: Y 8. Opioid Therapy greater than 6 weeks: N Opiate Contract Signed: 9. Risk Assessment Tool Provided: 0-LOW RISK 10. Functional Assessment Tool: 11. Recreational Drug Use: Never Drug Type: Tobacco Use: Former Smoker Tobacco Type: Cigarettes Amount or Packs/day: How Many Years: Alcohol Use: Yes Frequency: Quant:
== END | disposition home or self-care (01) ==
LOC: PAIN 06:56
PROVIDERS: ATTEND Anesthesiology Pain Medicine
DX: M47.817 Spondylosis without myelopathy or radiculopathy, lumbosacral region (principal); M47.816 Spondylosis without myelopathy or radiculopathy, lumbar region; M51.36 Other intervertebral disc degeneration, lumbar region; M53.3 Sacrococcygeal disorders, not elsewhere classified; G89.29 Other chronic pain; I10 Essential (primary) hypertension; Z98.890 Other specified postprocedural states; Z79.899 Other long term (current) drug therapy; Z88.8 Allergy status to other drugs, medicaments and biological substances

== ENCOUNTER → 2020-03-28 | Outpatient (CLI) | payer OTHER ==
[~2020-03-28] VITALS: Ht 160 cm; Wt 61.2 kg
[~2020-03-28] MED LIST changes: +CHILDREN'S ASPI81 M1 PO
[2020-03-28 13:59] VITALS: BP 130/56
--- NOTE | 2020-03-28 14:14 | NUR ---
Pain Clinic Assessment: 1. History of Osteoarthritis: NECK L-SPINE History of Rheumatoid Arthritis: 2. Height: 5 ft. 3 in. 160.0 cm. Weight: 135.0 lb. oz. 61.236 kg. Patient's BMI: 23.9 3. Vital Signs: BP: 130/56 Pulse: 71 Resp: 14 Temp: 02 Sat: 100 ECG Mon: 4. Pain Intensity: 7 5. Fall Risk: Dizziness: N Needs help standing or walking: N Fallen in the last 3 months: N Fall risk comments: 6. Patient on Blood Thinner: None 7. History of Hypertension: Y 8. Opioid Therapy greater than 6 weeks: N Opiate Contract Signed: 9. Risk Assessment Tool Provided: 0-LOW RISK 10. Functional Assessment Tool: 11. Recreational Drug Use: Never Drug Type: Tobacco Use: Former Smoker Tobacco Type: Amount or Packs/day: How Many Years: Alcohol Use: Yes Frequency: Quant:
--- NOTE | 2020-03-29 12:57 | HPC ---
[address] [address] PAIN MANAGEMENT CONSULTATION Name: VICKY GIRON Room #: REG [place] [facility].#: [id number] Admission: 03/28/20 Attend Phys: Jeremy Mast DO Discharge: Date of : 51 Report #: [id number] THIS REPORT FOR: cc: Betty Warren MD, Emily G. MD Johnson, James E. DO ~ DATE OF SERVICE: 03/28/2020 REFERRING PHYSICIAN: Xavier Ramirez MD CHIEF COMPLAINT: Right low back pain. HISTORY OF PRESENT ILLNESS: As you know, the patient is a 64-year-old female who was referred to our clinic by her orthopedic surgeon, Dr. Xavier Ramirez for evaluation for right low back pain. The patient was seen in consultation per Dr. Ramirez's request, diagnosed with lumbosacral spondylosis and right sacroiliac joint pain. The patient underwent SI joint injection with minimal benefit. She returned in followup visit with pain increasing over the low back. It was diagnosed as facet arthropathy of the lumbar spine. The patient underwent medial branch blocks at our last visit to address the L3, L4, L5 medial branch nerves on the right side with improvement in symptoms of 100%, lasting for nearly 2-1/2 hours. Her symptoms returned as expected back to her baseline level. She returns today in followup visit for the second in the series of medial branch blocks. If this is unsuccessful, move forward with radiofrequency lesioning. The patient is placing her current pain score at 7/10. ALLERGIES: CODEINE. CURRENT MEDICATIONS: See chart. SOCIAL HISTORY: The patient denies tobacco, alcohol, IV or illicit drug use. She is unaccompanied at today's visit. IMAGING: No new imaging available. PQRS: The patient has arthritic changes of the lumbar spine, cervical spine. No rheumatoid arthritis. Pain today is rated at 7/10. She is not a fall risk nor has she had a fall in last 3 months. She is not on blood thinners, but is treated for hypertension. She is not on opioids and has a low opiate addiction potential. Pain impact today 41/70, moderate to severe interference of daily activities secondary to pain. PHYSICAL EXAMINATION: VITAL SIGNS: Blood pressure 130/56, pulse 71, respiratory rate 14 and unlabored. The patient is 100% on room air. Height 5 feet 3 inches tall, [facility] [address] [place] [address] PAIN MANAGEMENT CONSULTATION Name: VICKY GIRON Room #: REG [place] Cecily#: [id number] Admission: 03/28/20 Attend Phys: Jeremy Mast DO Discharge: Date of : 51 Report #: [id number] weight 135 pounds, BMI calculated 23.9. GENERAL: Well-developed, well-nourished, well-hydrated 64-year-old female, appearing stated age, placing pain today at 7/10. HEENT: Normocephalic, atraumatic. Pupils equal, round and reactive. EXTREMITIES: Show no clubbing, no cyanosis, no edema. MUSCULOSKELETAL: Palpatory tenderness is once again noted over the sacroiliac joint on the right when compared to left. Lumbar provocation testing including extension, rotation, lateral flexion all intensify axial back pain consistent with facet arthropathy. Straight leg raising is negative. ASSESSMENT: 1. Lumbosacral spondylosis with radiculopathy. 2. Facet arthropathy of the lumbar spine. 3. Lumbar degeneration. 4. Right sacroiliac joint pain. 5. Chronic intractable pain. PLAN: 1. The patient returns today in followup visit having noted excellent benefit with the medial branch blocks at our last visit. She reported 100% improvement in overall pain lasting for nearly 2-1/2 hours, which is consistent with medial branch blocks from a diagnostic standpoint. The patient returns today in followup visit with pain level of 7/10 involving the same area of the lumbar region to undergo second in the series of medial branch blocks. If this is then successful at alleviating symptoms, we will then have the patient to undergo radiofrequency lesioning at our visit of next week. The patient has been advised risks and benefits of this diagnostic procedure, states understood and wished to proceed. 2. The patient has an appointment with Dr. Xavier Ramirez next week. We recommend she follow up with Dr. Ramirez in regards to the medial branch block treatment and the SI joint treatment and determine if surgical options may be necessary. She will advise us of that discussion after she has completed the consultation. 3. We will see the patient back in followup visit assuming she has excellent benefit with this medial branch block to undergo radiofrequency lesioning next week. PROCEDURE NOTE DESCRIPTION OF PROCEDURE: Right L3, L4, L5 lumbar medial branch blocks under fluoroscopic guidance. This is the second of 2 diagnostic medial branch blocks on the right side that the patient is undergoing. After obtaining written consent, the patient was taken back to the fluoroscopy suite and placed in a prone position on the fluoroscopy table with a [address] [address] PAIN MANAGEMENT CONSULTATION Name: VICKY GIRON Room #: REG [place] Tony#: [id number] Admission: 03/28/20 Attend Phys: Jeremy Mast DO Discharge: Date of : 51 Report #: [id number] under the abdomen to decrease the lumbar lordosis. The skin overlying the lumbosacral area was prepped and draped in an aseptic fashion. The L4 transverse process corresponding L3 medial branch nerve and the L5 transverse process corresponding the L4 medial branch nerve on the right side was visualized under AP fluoroscopy. The skin and subcutaneous tissue overlying the target site(s) of injection was anesthetized using 2 mL of 1% lidocaine. A 22-gauge 3-1/2 inch spinal needle with a bent tip was advanced under fluoroscopic guidance using a superior to inferior and lateral to medial approach to the dorsal, superior and medial aspect of the base of the transverse process(es). The needles were then directed ventral, medial and caudad to reach the target location(s). An oblique view facilitated needle placement with properly positioned needles(s) in the middle of the "eye" of the Seb dog for the medial branch block(s). At each site the needle(s) rested on periosteum. After negative aspiration for heme or CSF, 0.2 mL of Omnipaque dye was injected at each site under live fluoroscopy, demonstrating absence of vascular uptake. After negative aspiration for heme or CSF, 0.5 mL of bupivacaine 0.5% was slowly injected at each site to avoid forcing the solution away from the target points(s). The needle(s) were then removed. The L5 dorsal ramus block on the right side was performed using a slightly oblique approach under fluoroscopic guidance, placing the needle within the groove between the sacral site and the superior articular process of S1. The needle rested on periosteum. After negative aspiration for heme or CSF, 0.2 mL of Omnipaque dye was injected at under live fluoroscopy, demonstrating absence of vascular uptake. After negative aspiration for heme or CSF, 0.5 mL of bupivacaine 0.5% was slowly injected to avoid forcing the solution away from the target point. The needle was then removed. Sterile bandages were placed over the injection site. There were no apparent complications. The patient tolerated the procedure well and was carefully escorted to the recovery room in stable condition. The VAS was 7/10 before the procedure and 0/10 minutes after the procedure. After meeting discharge criteria, the patient was discharged home. <ELECTRONICALLY SIGNED> By: Jeremy Mast DO 03/29/20 1257 [id number] 1232 Jeremy Mast DO /nt
== END | disposition home or self-care (01) ==
LOC: PAIN 06:52
PROVIDERS: ATTEND Anesthesiology Pain Medicine
DX: M54.5 Low back pain (principal); M51.16 Intervertebral disc disorders with radiculopathy, lumbar region; M47.27 Other spondylosis with radiculopathy, lumbosacral region; G89.29 Other chronic pain; M53.3 Sacrococcygeal disorders, not elsewhere classified; Z88.5 Allergy status to narcotic agent; Z79.899 Other long term (current) drug therapy; Z98.890 Other specified postprocedural states; Z87.891 Personal history of nicotine dependence

== ENCOUNTER → 2020-04-05 | Outpatient (CLI) | payer OTHER ==
[~2020-04-05] VITALS: Ht 160 cm; Wt 60.8 kg
[2020-04-05 14:10] VITALS: BP 121/67
--- NOTE | 2020-04-05 14:25 | NUR ---
Pain Clinic Assessment: 1. History of Osteoarthritis: NECK L-SPINE History of Rheumatoid Arthritis: Not Applicable 2. Height: 5 ft. 3 in. 160.0 cm. Weight: 134.0 lb. oz. 60.782 kg. Patient's BMI: 23.7 3. Vital Signs: BP: 121/67 Pulse: 91 Resp: 14 Temp: 02 Sat: 98 ECG Mon: 4. Pain Intensity: 5-6 5. Fall Risk: Dizziness: N Needs help standing or walking: N Fallen in the last 3 months: N Fall risk comments: 6. Patient on Blood Thinner: None 7. History of Hypertension: Y 8. Opioid Therapy greater than 6 weeks: N Opiate Contract Signed: 9. Risk Assessment Tool Provided: 0-LOW RISK 10. Functional Assessment Tool: 11. Recreational Drug Use: Never Drug Type: Tobacco Use: Former Smoker Tobacco Type: Amount or Packs/day: How Many Years: Alcohol Use: Yes Frequency: Weekly Quant: 3
--- NOTE | 2020-04-11 10:42 | HPC ---
[facility] [place] [address] PAIN MANAGEMENT CONSULTATION Name: VICKY GIRON Room #: REG [place] [facility].#: [id number] Admission: 04/05/20 Attend Phys: Jeremy Mast DO Discharge: Date of : 51 Report #: [id number] THIS REPORT FOR: cc: Betty Warren MD, Emily G. MD Johnson, James E. DO ~ DATE OF SERVICE: 04/05/2020 CHIEF COMPLAINT: Low back pain. HISTORY OF PRESENT ILLNESS: As you know, the patient is a 64-year-old female referred to our clinic by her neurosurgeon, Dr. Xavier Ramirez, for evaluation for low back pain. She has undergone medial branch nerve blocks x 2 with excellent benefit. She returns today in followup visit to undergo radiofrequency lesioning of the medial branch nerves of the lumbar spine on the right side. The patient places her current pain score at level of 5-6/10. She has had no changes in her medical history since our visit of 03/28/2020. We have received authorization for the patient to undergo radiofrequency lesioning of the right L3, L4 and L5 medial branch nerves respectively. ALLERGIES: CODEINE. CURRENT MEDICATIONS: See chart. SOCIAL HISTORY: The patient denies tobacco, alcohol, IV or illicit drug use. She is accompanied by a family friend who is present in room today. IMAGING: No new imaging available. PQRS: The patient has arthritic changes of the lumbar spine, cervical spine, but reports no rheumatoid arthritis. She places current pain intensity at 5-6/10. She is not a fall risk nor has she had a fall in last 3 months. She is not on blood thinners, but is treated for hypertension. She is not on chronic opioids and has a low opioid addiction potential. Pain impact today 41 of 70 indicating [id number] interference of daily activities secondary to pain. PHYSICAL EXAMINATION: VITAL SIGNS: Blood pressure 121/67, pulse is 91, respiratory rate 14 and unlabored. The patient is 98% on room air. Height 5 feet 3 inches tall, weight 134 pounds, BMI calculated 23.7. GENERAL: Well-developed, well-nourished, well-hydrated 64-year-old female, appearing stated age. Pain is rated today 5-6/10. HEENT: Normocephalic, atraumatic. Pupils equal, round and reactive. Speech is fluent. [facility] [address] [place] [address] PAIN MANAGEMENT CONSULTATION Name: VICKY GIRON Room #: REG [facility]#: [id number] Admission: 04/05/20 Attend Phys: Jeremy Mast DO Discharge: Date of : 51 Report #: [id number] EXTREMITIES: Show no clubbing, no cyanosis. No appreciable edema. MUSCULOSKELETAL: Lower extremity strength appears symmetrical 5/5, intact to light touch from L1 through S2 dermatomes. Seated straight leg raising negative. Supine straight leg raising negative. Sunshine's test is negative. Modified Gaenslen's positive for axial low back pain on the right, mainly. Lumbar provocation testing is met with increasing pain on the right when compared to the left. ASSESSMENT: 1. Lumbosacral spondylosis with radiculopathy. 2. Facet arthropathy of the lumbar spine. 3. Lumbar degeneration. 4. Right sacroiliac joint pain. 5. Chronic intractable pain. PLAN: 1. The patient has returned today in followup visit having received excellent benefit with her medial branch nerve blocks provided on the right at the L3, L4, and L5 medial branch nerves. With these successful diagnostic blocks, we have now scheduled the patient to undergo radiofrequency lesioning of the right L3, L4, and L5 medial branch nerves in hopes of improving pain. The patient has been advised of the risks and benefits of those procedures. She states she understood and wished to proceed. 2. The patient has requested that we provide some sedation for the patient during the procedure. We have agreed to provide the patient with Versed as an anxiolytic allowing the patient to tolerate the procedure more easily. She had some difficulty with the medial branch blocks causing intense pain. 3. No further medication changes made at today's visit. The patient will continue current oral medications as directed. 4. We will see the patient back in followup visit on an as needed basis. We are hopeful the patient will see good and prolonged benefit with today's radiofrequency lesioning of the medial branch nerves of the lumbar spine. PROCEDURE NOTE DESCRIPTION OF PROCEDURE: Right L3, L4, L5, lumbar medial branch radiofrequency lesioning under fluoroscopic guidance. The procedure was explained and informed consent was obtained from the patient. The patient was informed of the risks of the procedure, which include infection, bleeding, nerve damage, failure to produce pain relief and postoperative discomfort lasting for several weeks. After obtaining written consent, an IV Hep-Lock was placed in the patient's upper extremity. After the IV was placed, the patient received 1 mg of Versed preoperatively. The patient was then taken to the fluoroscopy suite, placed in prone position [address] [address] PAIN MANAGEMENT CONSULTATION Name: VICKY GIRON Room #: REG [place] Tony#: [id number] Admission: 04/05/20 Attend Phys: Jeremy Mast DO Discharge: Date of : 51 Report #: [id number] with pillow under abdomen to decrease lumbar lordosis. Skin overlying lumbosacral area then prepped and draped in aseptic fashion using chlorhexidine and sterile draping procedures. AP imaging on the lumbar spine was used to identify the L2 through L5 vertebral bodies and the sacral ala. Target locations of the right side of the L4 transverse process corresponding the L3 medial branch nerve and the L5 transverse process corresponding to the L4 medial branch nerve were established. At this point, the patient was given a second 1 mg of Versed for anxiety related to the procedure. Cardiopulmonary monitoring was established, and it was monitored throughout the procedure. Using a 27-gauge, 1-1/4 inch needle, skin wheals were placed at the junction of the transverse process of the respective superior articular process using 1 mL of 1% lidocaine at each site. We were careful to only anesthetize the skin and not the deep tissues. The radiofrequency needles were then advanced under fluoroscopic guidance using a superior to inferior, lateral to medial approach to the dorsal superior and medial aspect at the base of the transverse processes. The needles were directed then caudally to reach the target locations. Oblique view facilitated needle placement with properly positioned needles in the middle of the "eye" of the Seb dog. At each site, needles rested on periosteum. Touching bone initially assured the needles were not placed too deeply. Radiofrequency lesioning of the L5 medial branch nerve on the right side was performed using a superior, inferior, lateral to medial approach under fluoroscopic guidance, placing the needle within the groove between the sacral ala and the superior articular process of S1. Needle rested on periosteum. Stimulation was performed at each level once the cannulas were in position. Sensory stimulation was performed at 0.3, 0.4, and 0.4 with impedance of 244, 146, and 175 at 50 Hz for the L3, L4, L5 medial branch nerves respectively. Good stimulation of the lumbar and buttock region was elicited indicating correct alignment with the posterior primary ramus. Absence of lower motor fasciculation was noted at 3 volts 2 Hz stimulation during testing of the L3, L4, L5 medial branch nerves on the right respectively. Following this affirmation of disassociation between sensory and motor stimulation, negative aspiration noted for heme or cerebrospinal fluid at each level. Next, 1 mL of bupivacaine 0.5% was injected at each site. After a 90-second delay, lesions were performed at a temperature of 80 degrees Celsius for a total of 90 seconds. Once the needle tips had cooled, 1 mL of a solution containing 1 mL 40 mg per mL, 40 mg total triamcinolone along with 3 mL of bupivacaine 0.5% was injected slowly. [place] were retracted approximately half way, flushed with 0.5 mL of lidocaine 1%, then removed. Sterile bandage placed over injection site. There were no new motor deficits present in the lower extremities following procedure. The patient tolerated procedure well, carefully [place] [address] PAIN MANAGEMENT CONSULTATION Name: VICKY GIRON Room #: JAMES Tony#: [id number] Admission: 04/05/20 Attend Phys: Jeremy Mast DO Discharge: Date of : 51 Report #: [id number] stable condition. No apparent complications. After meeting our discharge criteria, the patient discharged home. <ELECTRONICALLY SIGNED> By: Jeremy Mast DO 04/11/20 1042 1553 1840 Jeremy Mast DO /nt
== END | disposition home or self-care (01) ==
LOC: PAIN 06:57
PROVIDERS: ATTEND Anesthesiology Pain Medicine
DX: M47.816 Spondylosis without myelopathy or radiculopathy, lumbar region (principal); M47.27 Other spondylosis with radiculopathy, lumbosacral region; M51.36 Other intervertebral disc degeneration, lumbar region; M53.3 Sacrococcygeal disorders, not elsewhere classified; G89.29 Other chronic pain; I10 Essential (primary) hypertension; Z98.890 Other specified postprocedural states; Z79.899 Other long term (current) drug therapy; Z87.891 Personal history of nicotine dependence; Z88.8 Allergy status to other drugs, medicaments and biological substances

== ENCOUNTER → 2020-07-26 | Outpatient (CLI) | payer OTHER ==
[~2020-07-26] VITALS: Ht 160 cm; Wt 58.1 kg
[~2020-07-26] MED LIST changes: +RELAFEN500 M1 PO
--- NOTE | ~2020-07-26 | HPC ---
[facility] [place] [address] PAIN MANAGEMENT CONSULTATION Name: VICKY GIRON Room #: REG [place] Tony#: [id number] Admission: 07/26/20 Attend Phys: Jeremy Mast DO Discharge: Date of : 51 Report #: [id number] THIS REPORT FOR: cc: Betty Warren MD, Emily G. MD Johnson, James E. DO ~ DATE OF SERVICE: 07/26/2020 CHIEF COMPLAINT: Low back pain. HISTORY OF PRESENT ILLNESS: As you know, the patient is a very pleasant 65-year-old female who has returned today in followup visit with concerns of mild axial back pain. The patient was last seen in our clinic and underwent radiofrequency lesioning per the request of her neurosurgeon with good benefit. The patient is reporting up to 80% improvement in overall pain. She continues to experience some minimal pain as she wants to discuss the possibility of taking p.r.n. medications. She is also wishing to discuss whether or not chiropractic manipulation might be an option for treatment. She is extremely pleased with response to the radiofrequency lesionings, but did have a change in her medical history not soon after lesioning where she was found to have an abscess within the colon. She went on diet restrictions and was hospitalized ultimately undergoing surgery, which has resolved her symptoms. She continues to experience some back pain related to lying in bed for nearly a month after this incident. She returns today to discuss options for treatment to address residual 3/10 pain. She states pain is chronic in nature, aching in sensation, exacerbated with lying on the right side; improves with stretching and walking as well as [id number] medications. She returns to discuss options for treatment. ALLERGIES: CODEINE. CURRENT MEDICATIONS: Aspirin, omeprazole, multivitamin, lisinopril, omega-3 fish oil, calcium carbonate, alendronate and Advil PM. SOCIAL HISTORY: The patient denies tobacco use. She is a former smoker. Denies IV or illicit drug use. Denies any chronic alcohol use. She is retired, unaccompanied at today's visit. IMAGING: There is no new imaging available. PQRS: The patient has known arthritic changes of the lumbar spine and cervical spine. No rheumatoid arthritis. Pain is rated at 3/10. She is not a fall risk, has not fallen in last 3 months. She is not on blood thinners, but is treated for hypertension. She is not on chronic opioids, has a low opiate addiction potential. Pain impact is 41/70, moderate interference of daily activities secondary to pain. [address] [address] PAIN MANAGEMENT CONSULTATION [facility] Room #: REG [facility] Cecily#: [id number] Admission: 07/26/20 Attend Phys: Jeremy Msat DO Discharge: Date of : 51 Report #: [id number] PHYSICAL EXAMINATION: VITAL SIGNS: Blood pressure 140/59, pulse is 78, respiratory rate 14 and unlabored. The patient is 99% on room air. Height 5 feet 3 inches tall, weight 128 pounds, BMI calculated 22.7. GENERAL: Well-developed, well-nourished, well-hydrated 65-year-old female appearing stated age. She is in no acute distress, awake, alert and oriented x 3. Pain is rated no greater than 3/10. HEENT: Normocephalic, atraumatic. Pupils equal, round and reactive. NEUROLOGIC: Speech is fluent. The patient is in a mask due to compliance with COVID-19 regulations. EXTREMITIES: Show no clubbing, no cyanosis, no edema. MUSCULOSKELETAL: Seated straight leg raising remains negative. Supine straight leg raising negative. Sunshine's test is negative. There is some palpatory tenderness over the paraspinal musculature on the right, negative left. Lumbar provocation testing is met with only mild increase in pain. ASSESSMENT: 1. Lumbosacral spondylosis without radiculopathy. 2. Facet arthropathy of the lumbar spine. 3. Lumbar degeneration. 4. Chronic intractable pain. PLAN: 1. The patient returns today in followup visit, having noted about 80% improvement in overall pain with the radiofrequency lesioning provided at our last visit. She states that she is very pleased with response to that treatment as she indicates she would not have been able to undergo the rather large surgery she had to endure due to colon abscess secondary to diverticulitis. The patient states that she had to lay flat in a prone position for nearly a month as she healed from her wounds and surgery. She states she would not have been able to do that had her back not been treated only weeks before. She is extremely pleased with response to treatment, has had some residual low back pain that has been present since this one month incident of lying prone. She wishes to discuss treatment options in regard to this issue. There has been no new injury or trauma. No other changes in her medical history since our last visit. 2. Would recommend the patient take nabumetone 500 mg dose on a p.r.n. basis. The patient is resistant to take medication consistently and her symptoms tend to be more transient in nature. I believe a p.r.n. dosing of nabumetone will provide the patient with good analgesic benefit specifically to address the facet joints of the lumbar spine and will be able to allow the patient to participate in activities more fully. The patient is agreeable with the plan to initiate the medication on a p.r.n. basis. She was given a prescription of nabumetone 500 mg dose to take up to twice a day p.r.n. for pain with meals. I have given the patient #60 tablets, 2 refills, essentially 3 months' worth of [address] [address] PAIN MANAGEMENT CONSULTATION Name: VICKY GIRON Room #: REG HEATHERNgozi Tony#: [id number] Admission: 07/26/20 Attend Phys: Jeremy Mast DO Discharge: Date of : 51 Report #: [id number] medication. 3. The patient and I did discuss her questions in regard to chiropractic manipulation. We do not recommend high velocity or low velocity rotational type chiropractic manipulation, though we do recommend strongly linear decompression/traction techniques. These would be quite beneficial for the patient, as her symptoms are more related to the facet joints and rotational treatments will exacerbate to facet arthropathy pain. The linear traction and decompression would be quite beneficial. The patient is going to seek treatment through chiropractors that do offer linear traction/traction techniques. 4. We plan to see the patient back in followup visit. We are pleased to see she has seen 80% improvement in overall symptoms with the radiofrequency lesioning. I will make myself available if her symptoms do return, so that she can undergo the next in the series of treatments if necessary. We are hopeful she will see good and prolonged benefit. I believe that with chiropractic manipulation and the p.r.n. medication along with continuing activities she should see good and prolonged benefit. By: [id number] Jeremy Mast DO /nt
[2020-07-26 12:30] VITALS: BP 148/59
--- NOTE | 2020-07-26 12:35 | NUR ---
Pain Clinic Assessment: 1. History of Osteoarthritis: NECK L-SPINE History of Rheumatoid Arthritis: Not Applicable 2. Height: 5 ft. 3 in. 160.0 cm. Weight: 128.0 lb. oz. 58.060 kg. Patient's BMI: 22.7 3. Vital Signs: BP: 148/59 Pulse: 78 Resp: 14 Temp: 02 Sat: 99 ECG Mon: 4. Pain Intensity: 3 5. Fall Risk: Dizziness: N Needs help standing or walking: N Fallen in the last 3 months: N Fall risk comments: 6. Patient on Blood Thinner: None 7. History of Hypertension: Y 8. Opioid Therapy greater than 6 weeks: N Opiate Contract Signed: 9. Risk Assessment Tool Provided: 0-LOW RISK 10. Functional Assessment Tool: 41/ 11. Recreational Drug Use: Never Drug Type: Tobacco Use: Former Smoker Tobacco Type: Amount or Packs/day: How Many Years: Alcohol Use: Yes Frequency: Monthly Quant:
== END ==
LOC: PAIN 06:49
PROVIDERS: ATTEND Anesthesiology Pain Medicine
DX: M47.817 Spondylosis without myelopathy or radiculopathy, lumbosacral region (principal); G89.29 Other chronic pain; M51.36 Other intervertebral disc degeneration, lumbar region; Z88.8 Allergy status to other drugs, medicaments and biological substances; Z79.899 Other long term (current) drug therapy